=== PATIENT | male | born 1980 | race African-American/Black ===

== ENCOUNTER 2019-08-20 18:50 | Emergency (ER) | payer OTHER ==
[~2019-08-20] VITALS: Ht 180.3 cm; Wt 63.5 kg
[~2019-08-20 18:50] MED LIST: ACCUNEB SO1.25 MG/1; APAP/CODEINE ELI5 M1 OR; CITRATE OF MAG296 ML PO; COLACE100 MG PO; FLEXERIL; FLEXERIL PO; IBUPROFEN 600600 M1 PO; IBUPROFEN 800800 M1 PO; NAPROSYN500 MG PO; NORCO 5-325 TA1 EACH PO; OXYCONTIN10 M1 PO; OXYCONTIN20 M1 PO; PERCOCET 5-3251 EACH PO; PREDNISONE 10 M10 MG; PREDNISONE 10 M10 MG PO; PROMETH-CODEIN 65 ML PO; PROMETHAZINE12.5 M1; VENTOLIN HFA 1818 GM INH; VICODIN 5-5001 EACH PO; ZPAK PO; [UNRECOGNIZED DRUG - OTHER] PO
[2019-08-20 18:51] VITALS: BP 120/78
== END 2019-08-20 19:20 | disposition home or self-care (01) ==
LOC: ER 18:50
DX: K64.9 Unspecified hemorrhoids (principal); M70.21 Olecranon bursitis, right elbow; J44.9 Chronic obstructive pulmonary disease, unspecified; F17.210 Nicotine dependence, cigarettes, uncomplicated; Z88.0 Allergy status to penicillin

== ENCOUNTER 2019-10-21 15:42 | Emergency (ER) | payer OTHER ==
[~2019-10-21] VITALS: Ht 180.3 cm; Wt 65.8 kg
[2019-10-21 16:11] LABS: URINE BILIRUBIN NEGATIVE (Negative); URINE BLOOD NEGATIVE (Negative); URINE CLARITY CLEAR; URINE COLOR YELLOW; URINE GLUCOSE-RANDOM* NEGATIVE (Negative); URINE KETONES TRACE (Negative); URINE LEUKOCYTES-REFLEX NEGATIVE (Negative); URINE NITRITE-REFLEX NEGATIVE (Negative); URINE PROTEIN (DIPSTICK) TRACE (Negative)
[2019-10-21 16:45] LABS: ABSOLUTE NEUTROPHILS 5.3 thou/uL (1.4-8.2); BASOPHILS 0.5 % (0.0-2.0); EOSINOPHILS 0.2 % (0.0-3.0); HEMATOCRIT 44.4 % (42.0-52.0); HEMOGLOBIN 14.8 gm/dL (14.0-18.0); LYMPHOCYTES 7.7 % (24.0-44.0); MCH 29.6 pg (26.0-34.0); MCHC 33.4 g/dL (28.0-37.0); MCV 88.5 fL (80.0-100.0); MONOCYTES 8.6 % (1.0-8.0); PLATELET COUNT 256 thou/uL (150-400); RBC 5.02 mil/uL (4.50-6.00); WBC 6.4 thou/uL (4.0-11.0)
[2019-10-21 16:51] LABS: CALCIUM 10.2 mg/dL (8.5-10.1); CREATININE 1.2 mg/dL (0.7-1.3); POTASSIUM 4.2 mmol/L (3.5-5.1)
[2019-10-21 16:58] LABS: ALBUMIN 4.8 g/dL (3.4-5.0); TOTAL BILIRUBIN 0.9 mg/dL (<0.1-1.0); TOTAL PROTEIN 8.9 g/dL (6.4-8.2)
[2019-10-21] MEDS ORDERED: TAMIFLU75 MG PO (17:04)
[2019-10-21 17:55] VITALS: BP 98/47
== END 2019-10-21 17:55 | disposition home or self-care (01) ==
LOC: ER 15:42
PROVIDERS: Physician Assistant
DX: J09.X2 Influenza due to identified novel influenza A virus with other respiratory manifestations (principal); R11.2 Nausea with vomiting, unspecified; J44.9 Chronic obstructive pulmonary disease, unspecified; F17.210 Nicotine dependence, cigarettes, uncomplicated; Z88.0 Allergy status to penicillin

== ENCOUNTER 2020-01-27 20:14 | Emergency (ER) | payer OTHER ==
[~2020-01-27] VITALS: Ht 180.3 cm; Wt 65.8 kg
[~2020-01-27 20:14] MED LIST changes: +TAMIFLU75 MG PO
[2020-01-27] MEDS ORDERED: IBUPROFEN 600600 M1 PO (21:50)
[2020-01-27 22:12] VITALS: BP 92/49
== END 2020-01-27 22:35 | disposition home or self-care (01) ==
LOC: ER 20:14
DX: S39.012A Strain of muscle, fascia and tendon of lower back, initial encounter (principal); S20.211A Contusion of right front wall of thorax, initial encounter; S90.414A Abrasion, right lesser toe(s), initial encounter; M25.561 Pain in right knee; M79.671 Pain in right foot; R10.9 Unspecified abdominal pain; R06.02 Shortness of breath; J44.9 Chronic obstructive pulmonary disease, unspecified; F12.90 Cannabis use, unspecified, uncomplicated; F17.210 Nicotine dependence, cigarettes, uncomplicated; Z88.0 Allergy status to penicillin; W22.8XXA Striking against or struck by other objects, initial encounter; Y93.89 Activity, other specified; Y92.89 Other specified places as the place of occurrence of the external cause; Y99.8 Other external cause status